=== PATIENT | female | born 2005 | race Caucasian/White ===

== ENCOUNTER 2023-03-07 11:34 | Emergency (ER) | payer BC ==
[~2023-03-07] VITALS: Ht 165 cm; Wt 72.0 kg
[2023-03-07] MEDS ORDERED: NS IV 1000 ML 1,000 ML IV STA ×2 (11:57→13:26)
[2023-03-07] MEDS ORDERED: IBUPROFEN 600 MG TABLET PO ONE (12:00)
[2023-03-07] MEDS ORDERED: ONDANSETRON INJECTION 4 MG/2 ML (SDV) IVP ONE (12:00)
--- NOTE | 2023-03-07 12:03 | ED GU-Female ---
General Stated Complaint: AB AND BACK PAIN/FEVER Source: patient Exam Limitations: no limitations History of Present Illness Date Seen by Provider: Mar 07, 2023 Time Seen by Provider: 11:59 Initial Comments Patient is a 17-year-old female presents ED with right-sided back pain, fever chills body aches and urinary symptoms.*Developing pain with urination frequent urination last Wednesday. Patient states she had symptoms of pain with urination for at least 3 days. She did get a day with improvement.*Developing dull achy right-sided back pain rates 8 out of 10 constant since this past . She states she has been vomiting. Attempting to take Tylenol and ibuprofen. She is attempting to drink fluids. She does have a history of urinary tract infections and states this feels very similar. Not currently on her menstrual cycle and denies of any vaginal bleeding. She is scheduled for her menstrual cycle in a few days. She does have a Nexplanon. No history of previous abdominal surgery. She does report a mild cough without chest pain short of breath, sore throat, ear pain, abdominal pain, diarrhea. She does report a headache. She has cold sweats with a temperature on arrival. Patient not concern for . Allergies and Home Medications Allergies Coded Allergies: No Known Drug Allergies (Unverified , 03/07/23) Patient Home Medication List Home Medication List Reviewed: Yes Cefdinir (Cefdinir) 300 Mg Capsule, 300 MG PO BID Prescribed by: DIANE PAT on 03/07/23 1331 Ondansetron (Ondansetron Odt) 4 Mg Tab.rapdis, 4 MG SL Q4H PRN for NAUSEA/VOMITING Prescribed by: DIANE PAT on 03/07/23 1332 Review of Systems Review of Systems Constitutional: chills; No diaphoresis; fever, malaise, weakness EENTM: No ear pain, No blurred vision, No double vision Respiratory: cough; No dyspnea on exertion Cardiovascular: No chest pain, No edema Gastrointestinal: No abdominal pain, No diarrhea; nausea, vomiting Genitourinary: burning; denies discharge; dysuria, frequency Musculoskeletal: back pain; No gout, No joint pain Skin: No change in color, No change in hair/nails All Other Systemes Reviewed Negative Unless Noted: Yes Physical Exam Vital Signs Vital Signs - First Documented 03/07/23 11:50 Temp 37.9 Pulse 130 Resp 20 B/P (MAP) 145/88 (107) Pulse Ox 96 O2 Delivery Room Air Capillary Refill : Height, Weight, BMI Height: '" Weight: lbs. oz. kg; BMI Method: General Appearance: WD/WN, no apparent distress HEENT: PERRL/EOMI, normal ENT inspection, TMs normal, pharynx normal Neck: non-tender, full range of motion, supple Cardiovascular: no edema, no gallop, no JVD, tachycardia Respiratory: chest non-tender, lungs clear, normal breath sounds, no respiratory distress, no accessory muscle use Gastrointestinal: normal bowel sounds, non tender, soft Back: normal inspection, no CVA tenderness Extremities: normal range of motion, non-tender, normal inspection Neurologic/Psychiatric: oceanologist II-XII nml as tested, no motor/sensory deficits, alert, normal mood/affect Skin: normal color, warm/dry Focused Exam Lactate Level 03/07/23 12:05: Lactic Acid Level 0.90 Lactic Acid Level Laboratory Tests Test 03/07/23 12:05 Lactic Acid Level 0.90 MMOL/L (0.50-2.00) Progress/Results/Core Measures Suspected Sepsis SIRS Temperature: Pulse: Respiratory Rate: Laboratory Tests 03/07/23 12:05: White Blood Count 12.9H Blood Pressure / Mean: 03/07/23 12:05: Lactic Acid Level 0.90 Laboratory Tests 03/07/23 12:05: Creatinine 1.17, Platelet Count 164, Total Bilirubin 1.1H Results/Orders Lab Results Laboratory Tests Test 03/07/23 11:45 03/07/23 12:05 Range/Units Urine Color YELLOW Urine Clarity SL CLOUDY Urine pH 5.5 5-9 Urine Specific [place] 1.025 H 1.016-1.022 Urine Protein 3+ H NEGATIVE Urine Glucose (UA) TRACE H NEGATIVE Urine Ketones 4+ H NEGATIVE Urine Nitrite NEGATIVE NEGATIVE Urine Bilirubin 2+ H NEGATIVE Urine Urobilinogen 4.0 < = 1.0 MG/DL Urine Leukocyte Esterase 1+ H NEGATIVE Urine RBC (Auto) 3+ H NEGATIVE Urine RBC >100 H /HPF Urine WBC >100 H /HPF Urine Squamous Epithelial Cells 5-10 /HPF Urine Crystals PRESENT H /LPF Urine Amorphous Sediment FEW CLEMENT URATES H /LPF Urine Bacteria LARGE H /HPF Urine Casts NONE /LPF Urine Mucus SMALL H /LPF Urine Culture Indicated YES Urine Test NEGATIVE NEGATIVE White Blood Count 12.9 H 4.3-11.0 10^3/uL Red Blood Count 4.36 3.80-5.11 10^6/uL Hemoglobin 13.3 11.5-16.0 g/dL Hematocrit 39 35-52 % Mean Corpuscular Volume 89 80-99 fL Mean Corpuscular Hemoglobin 31 25-34 pg Mean Corpuscular Hemoglobin Concent 34 32-36 g/dL Red Cell Distribution Width 12.7 10.0-14.5 % Platelet Count 164 130-400 10^3/uL Mean Platelet Volume 10.5 9.0-12.2 fL Immature Granulocyte % (Auto) 2 % Neutrophils (%) (Auto) 87 H 42-75 % Lymphocytes (%) (Auto) 4 L 12-44 % Monocytes (%) (Auto) 7 0-12 % Eosinophils (%) (Auto) 0 0-10 % Basophils (%) (Auto) 0 0-10 % Neutrophils # (Auto) 11.3 H 1.8-7.8 10^3/uL Lymphocytes # (Auto) 0.6 L 1.0-4.0 10^3/uL Monocytes # (Auto) 0.8 0.0-1.0 10^3/uL Eosinophils # (Auto) 0.0 0.0-0.3 10^3/uL Basophils # (Auto) 0.0 0.0-0.1 10^3/uL Immature Granulocyte # (Auto) 0.2 H 0.0-0.1 10^3/uL Neutrophils % (Manual) 85 % Lymphocytes % (Manual) 9 % Monocytes % (Manual) 6 % Blood Morphology Comment NORMAL Sodium Level 132 L 135-145 MMOL/L Potassium Level 3.7 3.6-5.0 MMOL/L Chloride Level 100 98-107 MMOL/L Carbon Dioxide Level 18 L 21-32 MMOL/L Anion Gap 14 5-14 MMOL/L Blood Urea Nitrogen 15 7-18 MG/DL Creatinine 1.17 0.60-1.30 MG/DL Estimat Glomerular Filtration Rate 69 BUN/Creatinine Ratio 13 Glucose Level 108 H 70-105 MG/DL Lactic Acid Level 0.90 0.50-2.00 MMOL/L Calcium Level 9.0 8.5-10.1 MG/DL Corrected Calcium 9.3 8.5-10.1 MG/DL Total Bilirubin 1.1 H 0.1-1.0 MG/DL Aspartate Amino Transf (AST/SGOT) 17 5-34 U/L Alanine Aminotransferase (ALT/SGPT) 28 0-55 U/L Alkaline Phosphatase 113 40-136 U/L C-Reactive Protein High Sensitivity 28.12 H 0.00-0.50 MG/DL Total Protein 7.2 6.4-8.2 GM/DL Albumin 3.6 3.2-4.5 GM/DL My Orders Orders - UMA DURAN Ua Culture If Indicated (03/07/23 11:36) Hcg,Qualitative Urine (03/07/23 11:36) Cbc And Automated Diff (03/07/23 11:57) Comprehensive Metabolic Panel (03/07/23 11:57) Hs C Reactive Protein (03/07/23 11:57) Ns Iv 1000 Ml (Ns Iv 1000 Ml) (03/07/23 11:57) Ibuprofen Tablet (Ibuprofen Tablet) (03/07/23 12:00) Ondansetron Injection (Ondansetron Inj (03/07/23 12:00) Lactic Acid Analyzer (03/07/23 11:58) Urine Culture (03/07/23 11:45) Manual Differential (03/07/23 12:05) Ct Abdomen/Pelvis W (03/07/23 12:38) Morphine Injection (Morphine Injection (03/07/23 12:45) Ceftriaxone Iv/Im (Ceftriaxone Iv/Im) (03/07/23 12:39) Iohexol Injection (Omnipaque 350 Mg/Ml 1 (03/07/23 12:45) Ns (Ivpb) 100 Ml (Sodium Chloride 0.9% 1 (03/07/23 12:45) Ns Iv 1000 Ml (Ns Iv 1000 Ml) (03/07/23 13:26) Medications Given in ED Current Medications Medications Dose Ordered Sig/S[place]cer Route Start Time Stop Time Status Last Admin Dose Admin Ibuprofen 600 mg ONCE ONCE PO 03/07/23 12:00 03/07/23 12:01 DC 03/07/23 12:09 600 MG Iohexol 100 ml ONCE ONCE IV 03/07/23 12:45 03/07/23 12:46 DC 03/07/23 13:01 80 ML Morphine Sulfate 4 mg ONCE ONCE IVP 03/07/23 12:45 03/07/23 12:46 DC 03/07/23 12:42 4 MG Ondansetron HCl 4 mg ONCE ONCE IVP 03/07/23 12:00 03/07/23 12:01 DC 03/07/23 12:09 4 MG Sodium Chloride 100 ml ONCE ONCE IV 03/07/23 12:45 03/07/23 12:46 DC 03/07/23 13:01 80 ML Vital Signs/I&O 03/07/23 11:50 Temp 37.9 Pulse 130 Resp 20 B/P (MAP) 145/88 (107) Pulse Ox 96 O2 Delivery Room Air Capillary Refill : Departure Communication (PCP) Patient is a 17-year-old female who presents to the ED with right flank pain. Differential diagnosis cystitis, pyelonephritis, nephrolithiasis, urolithiasis, kidney abscess, started having urinary symptoms this past Wednesday with a developing right flank pain on . Pain radiates to the right sided abdomen. Associated vomiting, Fever chills. On arrival she is slightly febrile and tachycardic. CBC, CMP, lactic acid, urinalysis with test. CBC 12.9. Chemistry 132. Normal kidney function and liver function. CRP 28, lactic acid 0.90. Started on a liter of fluid. Patient Was given ibuprofen for the fever. Urinalysis positive for infection negative for . Due to location of pain and patient's presentation of symptoms CT abdomen pelvis was ordered. CT abdomen pelvis concern for cystitis. No evidence of nephrolithiasis or abscess of the kidney. Nonspecific cyst in the right ovary measuring up to 2.0 cm. Scant amount of free fluid in the pelvis. Subtle degree of stranding about the tip of the appendix which is otherwise normal. She has no right lower quadrant tenderness suggesting appendicitis. She did receive a dose of morphine with improvement of pain. Patient Was given a second liter of fluid. She did receive a dose of Rocephin. Heart rate improved to 95. She states she is feeling much better at this time with improvement of pain. Reassessed the abdomen without any specific tenderness. She is requesting to be discharged. Urine culture currently pending. She does not appear septic. She is not concern for sexual transmitted infection. No pelvic or lower abdominal tenderness. Concern for pyelonephritis. Will discharge with cefdinir for 10 days. Zofran for nausea. Continue drinking plenty of fluids. Recheck a urinalysis in 3 to 4 days. Follow-up your PCP for further evaluation. If any worsening symptoms return back to ED. Impression Primary Impression: Pyelonephritis Additional Impression: Ovarian cyst Disposition: HOME, SELF-CARE Condition: Stable Departure-Patient Inst. Decision time for Depature: 13:29 Referrals: NO,LOCAL PHYSICIAN (PCP) Primary Care Physician [facility] Patient Instructions: Urinary Tract Infection, Adult ED Add. Discharge Instructions: Take antibiotics as prescribed. Zofran for nausea. Alternate Tylenol or ibuprofen for pain. Suggest following up with [facility] in 4 to 5 days for reevaluation. If any worsening symptoms return back to ED. Scripts Ondansetron (Ondansetron Odt) 4 Mg Tab.rapdis 4 MG SL Q4H PRN for NAUSEA/VOMITING, #8 TAB Prov: UMA DURAN 03/07/23 Cefdinir (Cefdinir) 300 Mg Capsule 300 MG PO BID for 10 Days, #20 CAP Prov: UMA DURAN 03/07/23 UMA DURAN Mar 07, 2023 12:03
[2023-03-07 12:10] LABS: BILIRUBIN,URINE 2+ (NEGATIVE); CLARITY,URINE SL CLOUDY; COLOR,URINE YELLOW; GLUCOSE, URINE (UA) TRACE (NEGATIVE); KETONES,URINE 4+ (NEGATIVE); NITRITE,URINE NEGATIVE (NEGATIVE); PH,URINE 5.5 (5-9); PROTEIN,URINE 3+ (NEGATIVE)
[2023-03-07 12:11] LABS: BACTERIA,URINE LARGE /HPF; LEUKOCYTE ESTERASE ,URINE 1+ (NEGATIVE); RBC,URINE >100 /HPF; WBC,URINE >100 /HPF
[2023-03-07 12:14] LABS: AMORPHOUS SEDIMENT,UR FEW AMOR URATES /LPF
[2023-03-07 12:18] LABS: BASOPHILS % (AUTO) 0 % (0-10); EOSINOPHILS % (AUTO) 0 % (0-10); HEMATOCRIT 39 % (35-52); HEMOGLOBIN 13.3 g/dL (11.5-16.0); LYMPHOCYTES # (AUTO) 0.6 10^3/uL (1.0-4.0); LYMPHOCYTES % (AUTO) 4 % (12-44); MEAN CORPUSCULAR HEMOGLOBIN 31 pg (25-34); MEAN CORPUSCULAR HGB CONC 34 g/dL (32-36); MEAN CORPUSCULAR VOLUME 89 fL (80-99); MEAN PLATELET VOLUME 10.5 fL (9.0-12.2); MONOCYTES # (AUTO) 0.8 10^3/uL (0.0-1.0); MONOCYTES % (AUTO) 7 % (0-12); NEUTROPHILS # (AUTO) 11.3 10^3/uL (1.8-7.8); NEUTROPHILS % (AUTO) 87 % (42-75); PLATELET COUNT 164 10^3/uL (130-400); WHITE BLOOD COUNT 12.9 10^3/uL (4.3-11.0)
[2023-03-07 12:26] LABS: ALBUMIN 3.6 GM/DL (3.2-4.5); POTASSIUM 3.7 MMOL/L (3.6-5.0)
[2023-03-07 12:29] LABS: TOTAL PROTEIN 7.2 GM/DL (6.4-8.2)
[2023-03-07 12:30] LABS: BILIRUBIN,TOTAL 1.1 MG/DL (0.1-1.0)
[2023-03-07 12:32] LABS: CREATININE SERUM 1.17 MG/DL (0.60-1.30)
[2023-03-07] MEDS ORDERED: cefTRIAXone IV/IM 1,000 MG in NS (IVPB) 50 ML 50 ML IV STA (12:39)
[2023-03-07 12:44] LABS: LYMPHOCYTES % (MANUAL) 9 %; MONOCYTES % (MANUAL) 6 %; NEUTROPHILS % (MANUAL) 85 %; RBC MORPH NORMAL
[2023-03-07] MEDS ORDERED: morphine INJ 10 MG/ML 1ML (SYR OR VIAL) IVP ONE (12:45)
[2023-03-07] MEDS ORDERED: IOHEXOL 350 MG/ML 100 ML (OMNIPAQUE 350) VIAL IV ONE (12:45)
[2023-03-07] MEDS ORDERED: NS 100 ML (IVPB) BAG IV ONE (12:45)
--- NOTE | 2023-03-07 13:20 | Diagnostic Imaging Report ---
PROCEDURE: CT abdomen and pelvis with contrast. TECHNIQUE: Multiple contiguous axial images were obtained through the abdomen and pelvis after administration of intravenous contrast. Auto Exposure Controls were utilized during the CT exam to meet ALARA standards for radiation dose reduction. All CT scans use one or more of the following dose optimizing techniques: automated exposure control, MA and/or KvP adjustment based on patient size and exam type or iterative reconstruction. INDICATION: Right flank pain. COMPARISON: None. FINDINGS: Diffuse bladder wall thickening suspicious for cystitis. No hydronephrosis. The kidneys are unremarkable. Nonspecific cyst in the right ovary measuring up to 2.0 cm. Scant amount of free fluid in the pelvis. The appendix appears normal. However, there is a subtle degree of inflammatory stranding about the tip of the appendix. Lung bases are clear. Liver, gallbladder, pancreas, spleen and adrenals are negative. No free intraperitoneal air. No evidence of bowel obstruction. No lymphadenopathy. No acute osseous findings. IMPRESSION: 1. Diffuse bladder wall thickening suspicious for cystitis. Recommend correlation with urinalysis. 2. Nonspecific cyst in the right ovary measuring up to 2.0 cm. There is also a scant amount of free fluid in the pelvis which is likely physiologic. 3. Subtle degree of stranding about the tip of the appendix which is otherwise normal. Findings could represent early appendicitis. Dictated by: Dictated on workstation # [id number]
[2023-03-07] MEDS ORDERED: CEFD300C3 PO (13:31)
[2023-03-07] MEDS ORDERED: ONDA4TAB11 SL (13:32)
[2023-03-07 14:30] VITALS: BP 121/69
== END 2023-03-07 14:30 | disposition home or self-care (01) ==
LOC: ER 11:39
DX: N12 Tubulo-interstitial nephritis, not specified as acute or chronic (principal); N83.201 Unspecified ovarian cyst, right side
CPT/HCPCS: 36415; 74177; 80053; 81000; 83605; 84703; 85007; 85027; 86141; 87077; 87088; 87186